=== PATIENT | male | born 1970 | race American Indian/Alaskan Native ===

== ENCOUNTER 2019-08-27 14:39 | Observation (INO) | payer OTHER ==
[2019-08-27] MEDS ORDERED: LORazepam 2 MG/ML VIAL IV PRN ×3 (14:58)
[2019-08-27] MEDS ORDERED: chlordiazePOXIDE 25 MG CAP PO PRN (14:58)
[2019-08-27] MEDS ORDERED: diazePAM 10 MG/2 ML SYRINGE IV ONE (14:59)
[2019-08-27] MEDS ORDERED: SODIUM CHLORIDE 0.9% 500 ML 500 ML IV ONE (14:59)
--- NOTE | 2019-08-27 15:01 | Event Note ---
Date: 08/27/19 Medical screening note: 49-year-old gentleman, brought to the hospital by emergency medical services ( EMS documentation not available at time of chart dictation), was reportedly in the car, with a family member, when he had a convulsion. The patient is not reporting physical pain at this time. The patient denies DVT and pulmonary embolism risk factors at this time. The patient reports that he drinks alcohol every couple days. He endorses that he occasionally gets shaky if he does not consume alcohol. He is never had an alcohol withdrawal seizure that he is aware of. On his initial exam, he is afebrile, clinically sober, tachycardic, and slightly tremulous. No tongue fasciculations noted. Laboratory studies, EKG, CT scan of the brain, alcohol withdrawal protocol ordered. Intravenous fluids and Valium ordered Vital Signs 08/27/19 14:52 Temperature 97.2 F L Pulse Rate 112 H Respiratory 18 Rate Blood Pressure 132/94 O2 Sat by Pulse 97 Oximetry
[2019-08-27 15:17] LABS: Hemoglobin 15.1 gm/dl (11.8-15.2)
[2019-08-27 15:31] LABS: BUN/Creatinine Ratio 7; Blood Urea Nitrogen 11 mg/dL (9-20); Calcium 10.1 mg/dL (8.4-10.2); Hemolysis Index 10
--- NOTE | 2019-08-27 15:48 | Cat Scan Report ---
CT HEAD WITHOUT CONTRAST INDICATION / CLINICAL INFORMATION: new onset convulsion. TECHNIQUE: All CT scans at this location are performed using CT dose reduction for ALARA by means of automated e xposure control. COMPARISON: None available. FINDINGS: HEMORRHAGE: No evidence of intracranial hemorrhage or extra-axial fluid collection. EXTRA-AXIAL SPACES: Cortical sulci, sylvian fissures and basilar cisterns are slightly enlarged for a ge. VENTRICULAR SYSTEM: The ventricular system is of normal size and configuration. CEREBRAL PARENCHYMA: No areas of abnormal brain parenchymal attenuation are identified. There is no i ndication of recent infarction. MIDLINE SHIFT OR HERNIATION: There is no mass effect. CEREBELLUM / BRAINSTEM: Brainstem and cerebellum have an unremarkable appearance. INTRACRANIAL VESSELS:No abnormalities are identified on this noncontrast head CT. ORBITS: visualized portions of the orbits have an unremarkable appearance. SOFT TISSUES of HEAD: No significant abnormality. CALVARIUM: Evaluation of bone windows reveals no abnormalities. PARANASAL SINUSES / MASTOID AIR CELLS: Paranasal sinuses are free from inflammatory mucosal disease. Mastoid air cells are normally pneumatized. ADDITIONAL FINDINGS: No evidence of mass. IMPRESSION: 1. No acute intracranial abnormality. Signer Name: Samy Crook MD Signed: 08/27/2019 3:44 PM Workstation Name: [id number]
[2019-08-27 15:55] LABS: Hematocrit 45.2 % (35.5-45.6)
[2019-08-27 16:27] LABS: Basophils % (Auto) 0.2 % (0.0-1.8); Hematocrit 45.3 % (35.5-45.6); Hemoglobin 15.4 gm/dl (11.8-15.2); Lymphocytes # (Auto) 0.5 K/mm3 (1.2-5.4); Lymphocytes % (Auto) 8.5 % (13.4-35.0); Mean Corpuscular HGB Conc 34 % (32-34); Mean Corpuscular Volume 97 fl (84-94); Monocytes # (Auto) 0.4 K/mm3 (0.0-0.8); Monocytes % (Auto) 7.4 % (0.0-7.3); Platelet Count 119 K/mm3 (140-440); Red Cell Distribution Width 13.6 % (13.2-15.2)
[2019-08-27 16:37] LABS: INR 0.99 (0.87-1.13); Partial Thromboplastin Time 23.6 Sec. (24.2-36.6)
[2019-08-27 16:44] LABS: Creatine Kinase MB 3.6 ng/mL (0.0-4.0)
[2019-08-27 16:46] LABS: Albumin 4.5 g/dL (3.9-5); Bilirubin,Direct 0.3 mg/dL (0-0.2)
--- NOTE | 2019-08-27 17:33 | Emergency Department Report ---
ED General Adult HPI - General Chief complaint: Altered Mental Status Stated complaint: SEIZURE Time Seen by Provider: 08/27/19 15:45 Source: patient Mode of arrival: Stretcher Limitations: No Limitations - History of Present Illness Initial comments: This is a 49-year-old male who apparently had a seizure when traveling as a passenger in a car. He states that he drinks alcohol "every 2 days". He states that he had no prodromal type symptoms prior to the seizure. It was a generalized seizure. At the time of my evaluation the patient is conscious and alert. He was given 5 mg of diazepam IV by 1 of my colleagues. He was presumed to have alcohol withdrawal seizures. -: Sudden Radiation: other (Denies injury) Associated Symptoms: denies other symptoms - Related Data Home Medications Medication Instructions Recorded Confirmed Last Taken Unobtainable 08/27/19 08/27/19 Unknown Allergies Allergy/AdvReac Type Severity Reaction Status Date / Time No Known Allergies Allergy Unverified 08/27/19 14:52 ED Review of Systems ROS: Stated complaint: SEIZURE Other details as noted in HPI Constitutional: denies: chills, fever Eyes: denies: eye pain, eye discharge, vision change ENT: denies: ear pain, throat pain Respiratory: wheezing. denies: cough, shortness of breath Cardiovascular: denies: chest pain, palpitations Endocrine: no symptoms reported Gastrointestinal: denies: abdominal pain, vomiting Genitourinary: denies: urgency, dysuria Musculoskeletal: denies: back pain, arthralgia Skin: denies: rash, lesions Neurological: denies: headache, weakness, paresthesias Psychiatric: denies: anxiety, depression Hematological/Lymphatic: denies: easy bleeding, easy bruising ED Past Medical Hx - Past Medical History Hx Hypertension: Yes - Surgical History Past Surgical History?: No - Social History Smoking Status: Never Smoker Substance Use Type: Alcohol - Medications Home Medications: Home Medications Medication Instructions Recorded Confirmed Last Taken Type Unobtainable 08/27/19 08/27/19 Unknown History ED Physical Exam - General Limitations: No Limitations General appearance: alert, in no apparent distress - Head Head exam: Present: atraumatic, normocephalic - Eye Eye exam: Present: normal appearance. Absent: scleral icterus - ENT ENT exam: Present: mucous membranes moist - Neck Neck exam: Present: normal inspection. Absent: tenderness, meningismus - Respiratory Respiratory exam: Present: normal lung sounds bilaterally. Absent: respiratory distress - Cardiovascular Cardiovascular Exam: Present: regular rate, normal rhythm. Absent: systolic murmur, diastolic murmur, rubs, gallop - GI/Abdominal GI/Abdominal exam: Present: soft, normal bowel sounds. Absent: distended, tenderness, guarding, rebound, rigid - Rectal Rectal exam: Present: deferred - Extremities Exam Extremities exam: Present: normal inspection - Back Exam Back exam: Present: normal inspection - Neurological Exam Neurological exam: Present: alert, oriented X3, CN II-XII intact. Absent: motor sensory deficit (Somewhat tremulous) - Psychiatric Psychiatric exam: Present: normal affect, normal mood - Skin Skin exam: Present: warm, dry, intact, normal color. Absent: rash ED Course Vital Signs 08/27/19 08/27/19 08/27/19 14:47 14:52 15:00 Temperature 97.2 F L Pulse Rate 112 H 109 H Respiratory 18 18 Rate Blood Pressure 132/94 132/94 132/94 O2 Sat by Pulse 96 97 99 Oximetry 08/27/19 08/27/19 08/27/19 15:15 15:30 15:45 Temperature Pulse Rate 109 H 105 H Respiratory 16 21 Rate Blood Pressure 129/84 145/95 148/106 O2 Sat by Pulse 92 99 Oximetry 08/27/19 08/27/19 08/27/19 16:00 16:15 16:30 Temperature Pulse Rate 111 H 106 H 116 H Respiratory 14 12 12 Rate Blood Pressure 158/108 144/102 138/99 O2 Sat by Pulse 98 99 98 Oximetry 08/27/19 08/27/19 08/27/19 16:45 17:00 17:15 Temperature Pulse Rate 113 H 114 H 109 H Respiratory 14 13 11 L Rate Blood Pressure 138/100 147/102 139/93 O2 Sat by Pulse 98 99 98 Oximetry 08/27/19 08/27/19 08/27/19 17:30 17:45 18:00 Temperature Pulse Rate 111 H 114 H 113 H Respiratory 11 L 12 11 L Rate Blood Pressure 132/88 141/93 135/87 O2 Sat by Pulse 96 99 98 Oximetry 08/27/19 08/27/19 18:15 18:47 Temperature Pulse Rate 106 H 111 H Respiratory 14 15 Rate Blood Pressure 136/81 138/97 O2 Sat by Pulse 98 99 Oximetry - Reevaluation(s) Reevaluation #1: Patient still mildly tremulous. He is not encephalopathic. Discussed with hospitalist to see if he qualifies for observation. 08/27/19 17:44 ED Medical Decision Making - Lab Data Result diagrams: 08/27/19 15:59 08/27/19 15:01 Laboratory Results - last 24 hr 08/27/19 08/27/19 08/27/19 15:01 15:01 15:01 WBC RBC Hgb 15.1 Hct 45.2 MCV MCH MCHC RDW Plt Count 134 L Lymph % (Auto) [place] % (Auto) Eos % (Auto) Baso % (Auto) Lymph # [place] # Eos # Baso # Seg Neutrophils % Seg Neutrophils # PT INR APTT Sodium 136 L Potassium 4.0 Chloride 93.7 L Carbon Dioxide 17 L Anion Gap 29 BUN 11 Creatinine 1.5 Estimated GFR > 60 BUN/Creatinine Ratio 7 Glucose 201 H Calcium 10.1 Magnesium 2.40 H Total Bilirubin Direct Bilirubin Indirect Bilirubin AST ALT Alkaline Phosphatase Ammonia Total Creatine Kinase 574 H CK-MB (CK-2) CK-MB (CK-2) Rel Index Total Protein Albumin Albumin/Globulin Ratio Plasma/Serum Alcohol < 0.01 08/27/19 08/27/19 08/27/19 15:59 15:59 15:59 WBC 5.8 RBC 4.70 Hgb 15.4 H Hct 45.3 MCV 97 H MCH 33 H MCHC 34 RDW 13.6 Plt Count 119 L Lymph % (Auto) 8.5 L [place] % (Auto) 7.4 H Eos % (Auto) 0.0 Baso % (Auto) 0.2 Lymph # 0.5 L [place] # 0.4 Eos # 0.0 Baso # 0.0 Seg Neutrophils % 83.9 H Seg Neutrophils # 4.9 PT INR APTT Sodium Potassium Chloride Carbon Dioxide Anion Gap BUN Creatinine Estimated GFR BUN/Creatinine Ratio Glucose Calcium Magnesium Total Bilirubin 1.10 Direct Bilirubin 0.3 H Indirect Bilirubin 0.8 AST 221 H ALT 176 H Alkaline Phosphatase 70 Ammonia 88.0 H Total Creatine Kinase 605 H CK-MB (CK-2) 3.6 CK-MB (CK-2) Rel Index 0.5 Total Protein 9.1 H Albumin 4.5 Albumin/Globulin Ratio 1.0 Plasma/Serum Alcohol 08/27/19 16:03 WBC RBC Hgb Hct MCV MCH MCHC RDW Plt Count Lymph % (Auto) [place] % (Auto) Eos % (Auto) Baso % (Auto) Lymph # [place] # Eos # Baso # Seg Neutrophils % Seg Neutrophils # PT 12.9 INR 0.99 APTT 23.6 L Sodium Potassium Chloride Carbon Dioxide Anion Gap BUN Creatinine Estimated GFR BUN/Creatinine Ratio Glucose Calcium Magnesium Total Bilirubin Direct Bilirubin Indirect Bilirubin AST ALT Alkaline Phosphatase Ammonia Total Creatine Kinase CK-MB (CK-2) CK-MB (CK-2) Rel Index Total Protein Albumin Albumin/Globulin Ratio Plasma/Serum Alcohol Critical care attestation.: If time is entered above; I have spent that time in minutes in the direct care of this critically ill patient, excluding procedure time. ED Disposition Clinical Impression: Generalized seizure, Hyperammonemia Alcohol withdrawal Qualifiers: Complication of substance-induced condition: with unspecified complication Qualified Code(s): F10.239 - Alcohol dependence with withdrawal, unspecified Disposition: DC-09 OP ADMIT IP TO THIS HOSP Is pt being admited?: Yes Does the pt Need Aspirin: Yes Referrals: PRIMARY CARE, [Primary Care Provider] - 3-5 Days Time of Disposition: 19:10
[2019-08-27] MEDS ORDERED: THIAMINE 100 MG, FOLIC ACID 1 MG, MULTIPLE VITAMIN INJ, ADULT 10 ML in SODIUM CHLORIDE ... IV ONE (17:43)
[2019-08-27] MEDS ORDERED: SODIUM CHLORIDE 0.9% 1000 ML 2,000 ML IV ONE (17:55)
[2019-08-27] MEDS ORDERED: FOLIC ACID 1 MG, MULTIPLE VITAMIN INJ, ADULT 10 ML in SODIUM CHLORIDE 0.9% 1000 ML 1,00... IV ONE (18:00)
[2019-08-27] MEDS: THIAMINE 100 MG TAB PO SCH (18:50)
[2019-08-27] MEDS ORDERED: ASPIRIN 325 MG TAB PO ONE (19:10)
[2019-08-27] MEDS ORDERED: ACETAMINOPHEN 325 MG TAB PO PRN (20:54)
[2019-08-27] MEDS ORDERED: ONDANSETRON 4 MG/2 ML INJ IV PRN (20:54)
[2019-08-27] MEDS ORDERED: SODIUM BICARB 8.4% 50 MEQ/50 ML SYRINGE IV ONE (20:55)
--- NOTE | 2019-08-27 21:16 | History and Physical Report ---
History of Present Illness Date of admission: 08/27/2019 Chief complaint: They say he had a seizure History of present illness: 49-year-old male with alcohol dependence presents to ED for evaluation. Patient states that he was told that he had a seizure while sitting in the car. Patient reports that he awoke on the way to the hospital. Patient family reports that patient had a seizure while sitting in the car. EMS was notified and upon arrival the patient was found to be in distress and subsequently transported to [facility] for further evaluation and care. Patient seen and evaluated in the emergency department. Lab and imaging studies reviewed. Patient found to have alcohol withdrawal complicated by seizures. Patient placed in observation status and admitted to medical floor due to increased risk for decompensation. Patient initiated on CIWA protocol. Patient treated with banana bag, and supportive care. Patient has episodes of confusion with tangential thinking. Patient denies fever, chills, chest pain, palpitation, productive cough, skin rash, recent ill contacts or known exposure to COVID-19. Patient reports that his last drink of alcohol was 2 days ago and that he has "been drinking for years". No prior admission for review. No medication listed for reconciliation at the time of admission. Past History Past Medical History: other (See HPI) Past Surgical History: No surgical history, Other (Reviewed) Social history: single, alcohol abuse Family history: hypertension Medications and Allergies Allergies Allergy/AdvReac Type Severity Reaction Status Date / Time No Known Allergies Allergy Unverified 08/27/19 14:52 Home Medications Medication Instructions Recorded Confirmed Last Taken Type Unobtainable 08/27/19 08/27/19 Unknown History Active Meds: Active Medications Acetaminophen (Tylenol) 650 mg PO Q4H PRN PRN Reason: Pain MILD(1-3)/Fever >100.5/PARKER Chlordiazepoxide HCl (Librium) 50 mg PO Q1HR PRN PRN Reason: Joselyn 8-15 Folic Acid 1 mg/ Multivitamins /Minerals 10 ml/ Sodium Chloride 1,010.2 mls @ 250 mls/hr IV ONCE ONE Stop: 08/27/19 22:02 Last Admin: 08/27/19 19:37 Dose: 250 mls/hr Documented by: Lorazepam (Ativan) 2 mg IV Q1HR PRN PRN Reason: JEANNETTE-John 8-15 Lorazepam (Ativan) 4 mg IV Q1HR PRN PRN Reason: CIWA-Ar 16-25 Lorazepam (Ativan) 4 mg IV Q15MIN PRN PRN Reason: CIWA-Ar >25 Ondansetron HCl (Zofran) 4 mg IV Q8H PRN PRN Reason: Nausea And Vomiting Sodium Chloride (Sodium Chloride Flush Syringe 10 Ml) 10 ml IV BID [facility] Sodium Chloride (Sodium Chloride Flush Syringe 10 Ml) 10 ml IV PRN PRN PRN Reason: LINE FLUSH Thiamine HCl (Vitamin B-1) 100 mg PO QDAY [facility] Last Admin: 08/27/19 18:50 Dose: 100 mg Documented by: Review of Systems Constitutional: no weight loss, no weight gain, no night sweats Ears, nose, mouth and throat: no ear pain, no tinnitis, no decreased hearing, no nose pain Cardiovascular: no chest pain, no palpitations, no rapid/irregular heart beat, no syncope Respiratory: no cough, no hemoptysis, no shortness of breath, no dyspnea on exertion Gastrointestinal: no abdominal pain, no nausea, no vomiting, no diarrhea, no hematemesis Genitourinary Male: no dysuria, no hematuria, no flank pain, no discharge, no urinary frequency, no incontinence Rectal: no pain, no incontinence, no bleeding Musculoskeletal: no neck stiffness, no neck pain, no shooting leg pain, no leg numbness/tingling Integumentary: no rash, no pruritis, no sores, no jaundice, no boils Neurological: no transient paralysis, no paralysis, no weakness, no parathesias, no numbness, no tingling, no seizures, no change in speech, no change in mentation Psychiatric: no anxiety, no memory loss Exam - Constitutional Vitals: Temp Pulse Resp BP Pulse Ox 99.0 F 110 H 20 138/97 98 08/27/19 19:34 08/27/19 19:00 08/27/19 19:30 08/27/19 19:00 08/27/19 19:30 General appearance: Present: mild distress - EENT Eyes: Present: PERRL ENT: hearing intact, clear oral mucosa - Neck Neck: Present: supple, normal ROM - Respiratory Respiratory effort: normal Respiratory: bilateral: CTA - Cardiovascular Heart Sounds: Present: S1 & S2. Absent: rub, click - Extremities Extremities: pulses symmetrical, No edema Peripheral Pulses: within normal limits - Abdominal General gastrointestinal: Present: soft, non-tender, non-distended, normal bowel sounds Male genitourinary: Present: normal - Integumentary Integumentary: Present: clear, warm, dry - Musculoskeletal Musculoskeletal: gait normal, strength equal bilaterally - Psychiatric Psychiatric: appropriate mood/affect, intact judgment & insight - Neurologic Neurologic: CNII-XII intact, moves all extremities Results - Labs CBC & Chem 7: 08/27/19 15:59 08/27/19 15:01 Labs: Abnormal lab results 08/27/19 08/27/19 08/27/19 Range/Units 15: 15: 15:59 Hgb 15.4 H (11.8-15.2) gm/dl MCV 97 H (84-94) fl MCH 33 H (28-32) pg Plt Count 134 L 119 L (140-440) K/mm3 Lymph % (Auto) 8.5 L (13.4-35.0) % [place] % (Auto) 7.4 H (0.0-7.3) % Lymph # 0.5 L (1.2-5.4) K/mm3 Seg Neutrophils % 83.9 H (40.0-70.0) % APTT (24.2-36.6) Sec. Sodium 136 L (137-145) mmol/L Chloride 93.7 L (98-107) mmol/L Carbon Dioxide 17 L (22-30) mmol/L Glucose 201 H (75-100) mg/dL Magnesium 2.40 H (1.7-2.3) mg/dL Direct Bilirubin (0-0.2) mg/dL AST (5-40) units/L ALT (7-56) units/L Ammonia (25-60) umol/L Total Creatine Kinase 574 H (55-170) units/L Total Protein (6.3-8.2) g/dL 08/27/19 08/27/19 08/27/19 Range/Units 15:59 15:59 16:03 Hgb (11.8-15.2) gm/dl MCV (84-94) fl MCH (28-32) pg Plt Count (140-440) K/mm3 Lymph % (Auto) (13.4-35.0) % [place] % (Auto) (0.0-7.3) % Lymph # (1.2-5.4) K/mm3 Seg Neutrophils % (40.0-70.0) % APTT 23.6 L (24.2-36.6) Sec. Sodium (137-145) mmol/L Chloride (98-107) mmol/L Carbon Dioxide (22-30) mmol/L Glucose (75-100) mg/dL Magnesium (1.7-2.3) mg/dL Direct Bilirubin 0.3 H (0-0.2) mg/dL AST 221 H (5-40) units/L ALT 176 H (7-56) units/L Ammonia 88.0 H (25-60) umol/L Total Creatine Kinase 605 H (55-170) units/L Total Protein 9.1 H (6.3-8.2) g/dL Assessment and Plan - Patient Problems (1) Alcohol withdrawal Current Visit: Yes Status: Acute Qualifiers: Complication of substance-induced condition: with unspecified complication Qualified Code(s): F10.239 - Alcohol dependence with withdrawal, unspecified Plan to address problem: CIWA protocol, Ativan, IV banana bag, supportive care. Seizure precaution, aspiration precautions, (2) Acidosis Current Visit: Yes Status: Acute Plan to address problem: IV bicarbonate therapy, IV fluid resuscitation therapy, BMP, repeat BMP in a.m. (3) DVT prophylaxis Current Visit: Yes Status: Acute Plan to address problem: SCD to bilateral lower extremities while in bed, patient is ambulatory.
[2019-08-28] MEDS ORDERED: hydrALAZINE 20 MG/1 ML INJ IV ONE (04:25)
[2019-08-28] MEDS ORDERED: hydrALAZINE 20 MG/1 ML INJ IV PRN (04:40)
[2019-08-28 11:46] VITALS: BP 120/72
[2019-08-28] MEDS: THIAMINE 100 MG TAB PO SCH (12:00)
--- NOTE | 2019-08-28 12:03 | Discharge Summary ---
Providers - Providers Date of Admission: 08/27/19 20:54 Attending physician: JARVIS CUENCA Primary care physician: RADIOLOGY TRANSPORTER Hospitalization Condition: Stable Hospital course: 49-year-old male with alcohol dependence presented to ED for evaluation. Patient stated that he was told that he had a seizure while sitting in the car. Patient reported that he awoke on the way to the hospital. Patient family reported that patient had a seizure while sitting in the car. EMS was notified and upon arrival the patient was found to be in distress and subsequently transported to [facility] for further evaluation and care. Patient seen and evaluated in the emergency department. Lab and imaging studies reviewed. Patient found to have alcohol withdrawal complicated by seizures. Patient placed in ob servation status and admitted to medical floor due to increased risk for decompensation. Patient initiated on CIWA protocol. Patient treated with banana bag, and supportive care. Patient convalesced well during the hospital course. Patient treated with alcohol withdrawal protocol without incident. Patient denies fever, chills, headache, tremors. Patient seen and evaluated prior to discharge with no significant new physical exam findings. Patient medically optimized and back to usual state of health. Patient discharged home and instructed to follow-up with Alcoholics Anonymous at discharge. Patient counseled regarding alcohol cessation. Patient knowledges understanding instructions. Disposition: DC-01 TO HOME OR SELFCARE - Discharge Diagnoses (1) Alcohol withdrawal Status: Acute Qualifiers: Complication of substance-induced condition: with unspecified complication Qualified Code(s): F10.239 - Alcohol dependence with withdrawal, unspecified (2) Acidosis Status: Acute (3) DVT prophylaxis Status: Acute Core Measure Documentation - Palliative Care Palliative Care/ Comfort Measures: Not Applicable - Core Measures Any of the following diagnoses?: none Exam - Constitutional Vitals: Temp Pulse Resp BP Pulse Ox 99.1 F 110 H 20 120/72 98 08/28/19 11:26 08/28/19 11:26 08/28/19 11:26 08/28/19 11:26 08/28/19 11:26 General appearance: Present: no acute distress, well-nourished - EENT Eyes: Present: PERRL ENT: hearing intact, clear oral mucosa - Neck Neck: Present: supple, normal ROM - Respiratory Respiratory effort: normal Respiratory: bilateral: CTA - Cardiovascular Heart Sounds: Present: S1 & S2. Absent: rub, click - Extremities Extremities: pulses symmetrical, No edema Peripheral Pulses: within normal limits - Abdominal General gastrointestinal: Present: soft, non-tender, non-distended, normal bowel sounds Male genitourinary: Present: normal - Integumentary Integumentary: Present: clear, warm, dry - Musculoskeletal Musculoskeletal: gait normal, strength equal bilaterally - Psychiatric Psychiatric: appropriate mood/affect, intact judgment & insight - Neurologic Neurologic: CNII-XII intact, moves all extremities Plan Activity: advance as tolerated Weight Bearing Status: Full Weight Bearing Diet: regular Follow up with: PRIMARY CARE, [Primary Care Provider] - 3-5 Days Prescriptions: Folic Acid [Folvite] 1 mg PO QDAY #30 tablet Multivitamin Tab [Multiple Vitamin TAB (Theragran)] 1 each PO QDAY #30 tablet Thiamine [Vitamin B-1] 100 mg PO QDAY #30 tablet
== END 2019-08-28 12:45 | disposition home or self-care (01) ==
LOC: ED 14:39 → 4A 20:54
PROVIDERS: ADMIT Internal Medicine; ATTEND Internal Medicine
DX: F10.239 Alcohol dependence with withdrawal, unspecified (principal); R41.0 Disorientation, unspecified; E87.2 Acidosis; G40.309 Generalized idiopathic epilepsy and epileptic syndromes, not intractable, without status epilepticus; E72.4 Disorders of ornithine metabolism; I10 Essential (primary) hypertension; Z79.899 Other long term (current) drug therapy
CPT/HCPCS: 36415; 70450; 80048; 80076; 82140; 82550; 82553; 83735; 85014; 85018; 85025; 85049; 85610; 85730; 93005; 96361; 96365; 96366; 96375; 99285; G0378; J0360; J3360; J3411; J7030; J7040; 80320; G0480